=== PATIENT | female | born 1995 | race African-American/Black ===

== ENCOUNTER 2023-10-06 00:02 | Emergency (ER) | payer OTHER, SELFPAY ==
--- NOTE | 2023-10-06 00:09 | ED_ITS ---
HPI - General Adult General Chief complaint: Dental/Oral Stated complaint: bleeding from the mouth Time Seen by Provider: 10/06/23 00:06 Source: patient, RN notes reviewed and old records reviewed Mode of arrival: Ambulatory Limitations: no limitations History of Present Illness HPI narrative: This is a 28-year-old female with history of PCOS on spironolactone. Patient had her molars removed upper and lower this morning on the . Patient states she did have sutures. She has had some persistent bleeding throughout the day. She decided tried to eat something and put some tissue in the back lower area she drank and ate tried to take her medication and had increased bleeding. She has had some bright red blood intermittently throughout the day. Patient states it is never really stopped. She denies fevers. She states she has had increased pain she feels like she is increasing swelling in the cheek. Patient states no lightheadedness or passing out, no chest pain or shortness of breath. It is painful to open her jaw all the way but she can. No swelling of the tongue or lower airway feels more on the side but down into the neck little. Patient states no she has not had bleeding issues in the past. Sometimes has heavy periods but not always know in the appropriate bruising or bleeding otherwise. States only medication is spironolactone. No daily anticoagulants. Denies recent surgeries besides her dental surgery. Molars were taken out because they have been painful. No known drug allergies. No tobacco, alcohol or recreational drugs. Related Data Allergies Allergy/AdvReac Type Severity Reaction Status Date / Time No Known Drug Allergies Allergy Verified 10/06/23 00:23 Review of Systems Review of Systems ROS Unobtainable: All systems reviewed & are unremarkable except as noted in HPI and below Exam Narrative Exam Narrative: GEN: well nourished, well appearing female, alert and oriented x 3, patient appears to be in mild distress. HEENT: Atraumatic, pupils are equal round reactive to light, extraocular movements are intact, nares are clear, TMs are clear with no fluid, there is no conjunctival pallor. Throat is clear without any exudates, erythema, tonsillar enlargement or uvular deviation, patient appears to have some blood not actively bleeding but recent at the left posterior molar the inferior side. Patient does have some pain with opening her mouth but can open. No swelling of the tongue. Oropharynx appears intact uvula is midline. Patient does have swelling of the left cheek. No obvious ecchymosis of the cheek. HEART: Regular rate and rhythm without murmur, clicks, rubs. No carotid bruits, pulses are equal in upper and lower extremities LUNGS:Lungs clear to auscultation, no wheezes, rales, crackles, chest moves symmetrically ABD:bowel sounds normal, soft, non-tender, no guarding, rebound, rigidity, no masses noted, no hepatosplenomegaly MSCL: Non-tender, no muscle atrophy, muscles strength 5/5 upper and lower extremities, full range of motion, normal gait NEURO:CN 2-12 intact, sensation normal. Initial Vital Signs Initial Vital Signs: Vital Signs Temperature 98.3 F 10/06/23 00:10 Pulse Rate 81 10/06/23 00:10 Respiratory Rate 16 10/06/23 00:10 Blood Pressure 144/91 H 10/06/23 00:10 Pulse Oximetry 98 10/06/23 00:10 Oxygen Delivery Method Room Air 10/06/23 00:10 Course Orders Ordered: ED Orders 10/06/23 00:15 CT soft tissue neck w con Stat 10/06/23 00:35 CBC Auto Diff [Complete Blood Count AUTO DIFF] Stat CMP [Comprehensive Metabolic Panel] Stat PTT Partial Thromboplastin Darrian Stat Prothrombin Time INR Stat Type and Screen Stat Discontinued Medications Epinephrine (Racepinephrine 0.5 Ml Neb) 0.5 ml INH NOW ONE Stop: 10/06/23 00:16 Last Admin: 10/06/23 02:03 Dose: 0.5 ml Sodium Chloride (Normal Saline 0.9%) 1,000 mls @ 1,000 mls/hr IV BOLUS ONE Stop: 10/06/23 01:14 Last Admin: 10/06/23 00:50 Dose: 1,000 mls/hr Documented By: AUDI Ampicillin Sodium/Sulbactam (Sodium 3 gm/ Sodium Chloride) 100 mls @ 200 mls/hr IV NOW ONE Stop: 10/06/23 01:17 Last Infusion: 10/06/23 02:05 Dose: Infused Tramadol HCl (Tramadol 50 Mg Prepack) 1 bottle MISC DIRECTED ONE Stop: 10/06/23 01:55 Last Admin: 10/06/23 02:08 Dose: 1 bottle Vital Signs Vital signs: Vital Signs - 8 hr 10/06/23 00:10 10/06/23 01:27 10/06/23 02:20 Temperature 98.3 F 98.7 F Pulse Rate 81 68 74 Respiratory Rate 16 16 18 Blood Pressure 144/91 H 120/86 119/76 Pulse Oximetry 98 100 100 Oxygen Delivery Method Room Air Room Air Room Air Medical Decision Making Lab Data 10/06/23 00:35 10/06/23 00:35 Labs: Lab Results 10/06/23 Range/Units 00:35 WBC 12.3 H (4.5-11.0) X10^3/uL RBC 4.82 (4.0-5.2) X10^6/uL Hgb 13.0 (12.0-16.0) g/dL Hct 39.4 (36-46) % MCV 81.7 (80-100) fL MCH 27.1 (26-34) PG MCHC 33.2 (30-36) % RDW 14.7 (11.6-14.8) % Plt Count 243 (150-400) X10^3/uL Neut % (Auto) 73.2 (50-75) % Lymph % (Auto) 17.2 L (25-40) % Mckinley % (Auto) 9.3 (3-14) % Eos % (Auto) 0.1 L (2-4) % Baso % (Auto) 0.2 (0-2) % Neut # (Auto) 9000 H (1426-0346) /uL Lymph # (Auto) 2100 (7140-9204) /uL Mckinley # (Auto) 1100 H (0-900) /uL Eos # (Auto) 0 (0-450) /uL Baso # (Auto) 0 (0-100) /uL PT 13.0 H (9.4-12.5) SECONDS INR 1.1 (0.9-1.3) APTT 33 (25.1-36.5) SECONDS Sodium 138 (137-145) mmol/L Potassium 3.7 (3.4-5.1) mmol/L Chloride 103 (98-107) mmol/L Carbon Dioxide 25 (22-32) mmol/L BUN 18 H (7-17) mg/dL Creatinine 0.85 (0.52-1.04) mg/dL Estimated GFR > 60 (>60) mL/min BUN/Creatinine Ratio 21.2 (6-22) Glucose 95 (70-100) mg/dL Calcium 9.6 (8.4-10.2) mg/dL Total Bilirubin 0.9 (0.2-1.3) mg/dL AST 29 (14-36) IU/L ALT 28 (<35) IU/L Alkaline Phosphatase 67 (38-126) U/L Total Protein 8.1 (6.3-8.2) g/dL Albumin 4.5 (3.5-5.0) g/dL Globulin 3.6 (1.7-4.1) g/dL Albumin/Globulin Ratio 1.3 (1.0-2.8) Blood Type O Positive Antibody Screen Negative Imaging Data CT soft tissue neck: Radiologist's Impression: [address] [address] [address] Scan Report Signed Patient: CHRIS CUEVAS MR#: [id number] : 1995 Acct:[id number] Age/Sex: 28 / F Date of Service: 10/06/23 Loc: ED Accession Number: [id number] Procedure: CT soft tissue neck w con Ordering Provider: Katie Cruz D.O. PROCEDURE: CT SOFT TISSUE NECK W CON INDICATIONS: s/p Lmolar, increased swelling, bleeding TECHNIQUE: After the administration of intravenous contrast, 3.0 mm axial sections acquired from the sella to the aortic arch. Additional oblique axial 3.0 mm sections acquired through the pharynx. 3 mm thick coronal and sagittal reformats were generated. For radiation dose reduction, the following was used: automated exposure control. COMPARISON: None. FINDINGS: Image quality: Excellent. Lymph nodes: Few prominent left-sided cervical lymph nodes are noted, likely reactive. Vessels: Visualized vasculature appears patent. Neck spaces: Fluid and gas is seen along the medial aspect of the left mandibular angle. A well-defined collection is not definitively seen, however this area measures approximately 2.6 x 2.2 centimeters. Fluid is seen extending inferiorly to the inferior aspect of the submandibular gland and superiorly to the temporomandibular joint. There is surrounding fat stranding. There is mild mass effect on the airway without narrowing. The oropharynx, nasopharynx, and pharynx demonstrate no mucosal lesions. The vocal cords, false vocal cords, pyriform sinuses, epiglottis, vallecula, and tongue base all appear normal. Glands: The parotid and submandibular glands appear normal. Thyroid gland is unremarkable. Miscellaneous: Visualized brain and orbits appear normal. Lung apices appear clear. Superficial soft tissues appear normal. Bones: Status post extraction of left mandibular molar, there is a cortical defect along the medial aspect of the left mandible near the root of the teeth.. No suspicious bony lesions. Visualized sinuses and mastoids appear unremarkable. IMPRESSION: Fluid and gas is seen along the medial aspect of the left mandibular angle as described above. Findings are concerning for infection status post tooth extraction. A well-defined collections not definitely seen, however this may represent a developing abscess. Mild mass effect on the airway without narrowing. Dictated by: Andrés Brown M.D. on 10/06/2023 at 0:59 Approved by: Andrés Brown M.D. on 10/06/2023 at 1:06 MDM Narrative Medical decision making narrative: Patient was given suction at bedside. Mostly saliva at this point. Patient has tried teabags at home. Plan for labs, type and screen, CT soft tissue neck. We will try racemic epi to decrease bleeding and if not successful TXA. Patient's vitals no tachycardia, afebrile. Labs show white count of 12.3, hemoglobin of 13 with platelets of 243. INR 1.1. Sodium 138 potassium of 3 7 otherwise normal electrolytes and LFTs. INR is 1.[address] soft tissue neck shows fluid gas seen along medial aspect of the left mandibular angle, gas isn't entirely unexpected status post tooth extraction is potential for infection there is no well-defined collection. Mild mass effect on the airway without narrowing. Patient did receive a dose of Unasyn although just had surgery in the last day so less likely to be infection with suspect possibly blood. Patient to see her dentist today left unable to see them ENT referral was given as well. Patient states it does not feel like her cheek is swelling anymore. She has had minimal to no bleeding after racemic epinephrine. There was about 20 mL of saliva that is blood-tinged in the suction canister. Patient states she feels safe to return home did encourage her to follow up with her dentist today and if not ENT. I suspect it is more blood and then infectious based on the timeframe, she is already been prescribed antibiotics and started taking them. Discussed return precautions with low threshold to return. Discharge Plan Departure Patient Disposition: Home Clinical Impression: Surgical wound hemorrhage after dental procedure Activity Restrictions/Additional Instructions: Follow up with your dentist today. You can use ice water to swish and spit. Clear liquid diet until cleared by your dentist. Your imaging shows some swelling about 2.6x2.2cm in the left check, this could be infection or blood. Please follow up with your dentist today for recheck or ENT if they cannot see you. Continue your medications as prescribed including your antibiotic. You may take Tylenol up to a 1000 mg every 6 hours with the ibuprofen you were prescribed. You may take tramadol 1 tablet every 6 hours as needed for pain. This medication can make you sleepy do not drive, perform hazardous activities or make any major decisions while taking it. This medication will make you constipated please take a stool softener once to twice daily until stools are soft and regular. Return if swelling is increasing, persistent bleeding, fevers, swelling of her tongue, airway, difficulty with swallowing, increasing pain or other new or concerning changes. Referrals: Fernando Briscoe MD [Physician] - Stand Alone Forms: Patient Portal/API
[2023-10-06 00:10] VITALS: BP 144/91; PULSE 81; RESP 16; TEMP 36.8; O2SAT 98; BMI 25.4
--- NOTE | 2023-10-06 00:15 | DI.CT.S_ITS ---
PROCEDURE: CT SOFT TISSUE NECK W CON INDICATIONS: s/p Lmolar, increased swelling, bleeding TECHNIQUE: After the administration of intravenous contrast, 3.0 mm axial sections acquired from the sella to the aortic arch. Additional oblique axial 3.0 mm sections acquired through the pharynx. 3 mm thick coronal and sagittal reformats were generated. For radiation dose reduction, the following was used: automated exposure control. COMPARISON: None. FINDINGS: Image quality: Excellent. Lymph nodes: Few prominent left-sided cervical lymph nodes are noted, likely reactive. Vessels: Visualized vasculature appears patent. Neck spaces: Fluid and gas is seen along the medial aspect of the left mandibular angle. A well-defined collection is not definitively seen, however this area measures approximately 2.6 x 2.2 centimeters. Fluid is seen extending inferiorly to the inferior aspect of the submandibular gland and superiorly to the temporomandibular joint. There is surrounding fat stranding. There is mild mass effect on the airway without narrowing. The oropharynx, nasopharynx, and pharynx demonstrate no mucosal lesions. The vocal cords, false vocal cords, pyriform sinuses, epiglottis, vallecula, and tongue base all appear normal. Glands: The parotid and submandibular glands appear normal. Thyroid gland is unremarkable. Miscellaneous: Visualized brain and orbits appear normal. Lung apices appear clear. Superficial soft tissues appear normal. Bones: Status post extraction of left mandibular molar, there is a cortical defect along the medial aspect of the left mandible near the root of the teeth.. No suspicious bony lesions. Visualized sinuses and mastoids appear unremarkable. IMPRESSION: Fluid and gas is seen along the medial aspect of the left mandibular angle as described above. Findings are concerning for infection status post tooth extraction. A well-defined collections not definitely seen, however this may represent a developing abscess. Mild mass effect on the airway without narrowing. Dictated by: Andrés Brown M.D. on 10/06/2023 at 0:59 Approved by: Andrés Brown M.D. on 10/06/2023 at 1:06
[2023-10-06] MEDS: SODIUM CHLORIDE 0.9% 1,000 ML 1000 ML IV (00:50)
[2023-10-06 00:57] LABS: Add Manual Diff / Slide Review NO; Basophils Absolute Auto 0 /uL (0-100); Basophils Percent Auto 0.2 % (0-2); Eosinophils Absolute Auto 0 /uL (0-450); Eosinophils Percent Auto 0.1 % (2-4); Hematocrit 39.4 % (36-46); Lymphocytes Absolute Auto 2100 /uL (1100-4500); Lymphocytes Percent Auto 17.2 % (25-40); Mean Corpuscular HGB Conc 33.2 % (30-36); Mean Corpuscular Hemoglobin 27.1 PG (26-34); Mean Corpuscular Volume 81.7 fL (80-100); Monocytes Absolute Auto 1100 /uL (0-900); Monocytes Percent Auto 9.3 % (3-14); Neutrophils Absolute Auto 9000 /uL (1500-7000); Neutrophils Percent Auto 73.2 % (50-75); Platelet Count 243 X10^3/uL (150-400); Red Blood Cell Count 4.82 X10^6/uL (4.0-5.2); Red Cell Distribution Width 14.7 % (11.6-14.8); White Blood Cell Count 12.3 X10^3/uL (4.5-11.0)
[2023-10-06 01:08] LABS: Alanine Aminotransferase 28 IU/L (<35); Albumin 4.5 g/dL (3.5-5.0); Albumin Globulin Ratio 1.3 (1.0-2.8); Alkaline Phosphatase 67 U/L (38-126); Aspartate Aminotransferase 29 IU/L (14-36); BUN Creatinine Ratio 21.2 (6-22); Bilirubin Total 0.9 mg/dL (0.2-1.3); Blood Urea Nitrogen 18 mg/dL (7-17); Calcium 9.6 mg/dL (8.4-10.2); Carbon Dioxide 25 mmol/L (22-32); Chloride 103 mmol/L (98-107); Estimated Glomerular Filt Rate > 60 mL/min (>60); Globulin 3.6 g/dL (1.7-4.1); Glucose 95 mg/dL (70-100); HEMOLYSIS < 15 (0-50); Potassium 3.7 mmol/L (3.4-5.1); Sodium 138 mmol/L (137-145); Total Protein 8.1 g/dL (6.3-8.2)
[2023-10-06 01:27] VITALS: BP 120/86; PULSE 68; RESP 16; O2SAT 100
[2023-10-06 01:29] LABS: INR 1.1 (0.9-1.3)
[2023-10-06] MEDS: AMPICILLIN/SULBACTAM 3 GM 3 GM in SODIUM CHLORIDE 0.9% 100 ML IV (01:30)
[2023-10-06 01:32] LABS: PTT Partial Thromboplastin Tim 33 SECONDS (25.1-36.5)
[2023-10-06] MEDS: RACEPINEPHRINE 0.5 ML NEB INH (02:03)
[2023-10-06] MEDS: TRAMADOL 50 MG PREPACK 1 BOTTLE MISC (02:08)
[2023-10-06 02:20] VITALS: BP 119/76; PULSE 74; RESP 18; TEMP 37.1; O2SAT 100
== END 2023-10-06 02:20 | disposition home or self-care (01) ==
PROVIDERS: Emergency Provider Emergency Medicine
DX: K91.840 Postprocedural hemorrhage of a digestive system organ or structure following a digestive system procedure (principal)
CPT/HCPCS: 36415; 70491; 80053; 85025; 85610; 85730; 86850; 86900; 86901; 96365; 99284; J0295; Q9967